=== PATIENT | female | born 1980 | race Caucasian/White ===

== ENCOUNTER 2022-05-01 13:03 | Emergency (ER) | payer OTHER ==
[~2022-05-01] VITALS: Ht 157.5 cm; Wt 77.2 kg
[2022-05-01] MEDS ORDERED: methylPREDNISolone SOD SUCC 125 MG/2 ML VL IM ONE (13:45)
[2022-05-01] MEDS ORDERED: EPINEPHrine HCL 1 MG/1 ML AMP IM ONE (13:45)
[2022-05-01 15:20] VITALS: BP 110/82
[2022-05-01] MEDS ORDERED: PRED20TA2 PO (16:38)
== END 2022-05-01 18:58 | disposition home or self-care (01) ==
LOC: ER 13:03
DX: T78.40XA Allergy, unspecified, initial encounter (principal); X58.XXXA Exposure to other specified factors, initial encounter; Z53.29 Procedure and treatment not carried out because of patient's decision for other reasons
CPT/HCPCS: 71045; 96372; 99283; J2930